=== PATIENT | male | born 1970 | race Caucasian/White ===

== ENCOUNTER 2016-12-06 09:11 | Emergency (ER) | payer OTHER ==
[~2016-12-06] VITALS: Ht 193 cm; Wt 88.6 kg
[~2016-12-06 09:11] MED LIST: MOTRIN800 MG PO; PERCOCET 5/31 TABLET PO; TYLENOL EXTRA500 MG PO; ZOFRAN4 MG PO
[2016-12-06 09:42] LABS: AMYLASE 47 IU/L (1-118)
[2016-12-06 09:51] LABS: LIPASE 25 U/L (1.0-51.0); PROTHROMBIN TIME 10.2 (9.2-11.2); PTT 27.5 (25-32)
[2016-12-06 09:55] LABS: TROP-I INTERPRETATION NEGATIVE; TROPONIN-I < 0.01 ng/mL (0.0-0.30)
[2016-12-06] MEDS ORDERED: PREDNISONE50 MG PO (11:51)
[2016-12-06] MEDS ORDERED: VALTREX1000 MG PO (11:52)
[2016-12-06 12:13] VITALS: BP 139/98
== END 2016-12-06 12:43 | disposition home or self-care (01) ==
LOC: EDBD 09:11 → EME 09:11
DX: G51.0 Bell's palsy (principal); Z82.3 Family history of stroke; R42 Dizziness and giddiness
CPT/HCPCS: 70450; 70551; 82150; 83690; 84484; 85610; 85730; 93005; 99281; 99285; J2930